=== PATIENT | female | born 1990 | race Two or more races ===

== ENCOUNTER 2018-04-09 17:46 | Emergency (ER) | payer SELFPAY ==
[~2018-04-09] VITALS: Ht 162.6 cm; Wt 89.3 kg
[~2018-04-09 17:46] MED LIST: ALBUTEROL SULF8.5 GM IH; CHROMAGEN,1 CAPSULE PO; IBUPROFEN800 MG PO; MACROBID100 MG PO; MOTRIN800 MG PO; NAPROSYN500 MG PO; NOHOMEMEDS; NORCO 5/3251 TABLET PO; PREDNISONE20 MG PO; PRENATAL TABLE1 EAC3 PO; ZOFRAN ODT4 MG PO
[2018-04-09 18:03] VITALS: BP 135/99
[2018-04-09] MEDS ORDERED: MOTRIN800 MG PO (20:11)
[2018-04-09] MEDS ORDERED: PEN-VEE K,VEET500 MG PO (20:11)
[2018-04-09] MEDS ORDERED: TYLENOL EXTRA500 MG PO (20:11)
== END 2018-04-09 20:43 | disposition home or self-care (01) ==
LOC: EME 17:46
DX: K02.9 Dental caries, unspecified (principal); Z88.2 Allergy status to sulfonamides
CPT/HCPCS: 99281; 99283